=== PATIENT | male | born 1990 | race Caucasian/White ===

== ENCOUNTER 2022-04-14 11:35 | Outpatient (CLI) | payer OTHER, SELFPAY ==
[2022-04-14 12:15] LABS: Mono Screen* Negative (Negative)
[2022-04-14 21:36] LABS: Chloride* 107 mmol/L (96-114)
[2022-04-14 21:37] LABS: Albumin* 4.1 g/dL (3.3-5.0); Sodium* 141 mmol/L (135-149)
[2022-04-14 21:38] LABS: Potassium* 4.4 mmol/L (3.6-5.1)
[2022-04-14 21:40] LABS: Alanine Aminotransferase* 105 U/L (4-50); Alkaline Phosphatase* 79 U/L (40-150); Aspartate Amino Transferase* 97 U/L (12-35); Bilirubin Total* 0.6 mg/dL (0.1-1.5); Blood Urea Nitrogen* 15 mg/dL (5-24); Carbon Dioxide* 26 mmol/L (20-32); Estimated Glomerular Filt Rate 103 ml/min; Glucose* 82 mg/dL (60-115)
[2022-04-14 21:41] LABS: Calcium* 9.2 mg/dL (8.4-10.6)
[2022-04-14 21:43] LABS: C Reactive Protein* 1.4 mg/dL (0.5-1.0)
== END 2022-04-14 11:36 | disposition home or self-care (01) ==
PROVIDERS: PCP Emergency Medicine; Visit Provider Emergency Medicine
DX: R61 Generalized hyperhidrosis (principal)
CPT/HCPCS: 80053; 86140; 86308; 86617; 86618; 87040

== ENCOUNTER 2022-04-16 16:07 | Outpatient (CLI) | payer OTHER, SELFPAY | END 2022-04-16 16:08 | disposition home or self-care (01) | LOC: LKVREF 04-19 13:03 | PROVIDERS: PCP Emergency Medicine; Visit Provider Emergency Medicine | DX: R74.01 Elevation of levels of liver transaminase levels (principal) | CPT/HCPCS: 80074 ==

== ENCOUNTER 2022-04-22 10:13 | Outpatient (CLI) | payer OTHER, SELFPAY ==
[2022-04-22 15:21] LABS: Chloride* 108 mmol/L (96-114)
[2022-04-22 15:22] LABS: Potassium* 4.5 mmol/L (3.6-5.1); Sodium* 143 mmol/L (135-149)
[2022-04-22 15:25] LABS: Alanine Aminotransferase* 71 U/L (4-50); Alkaline Phosphatase* 74 U/L (40-150); Aspartate Amino Transferase* 64 U/L (12-35); Bilirubin Direct* 0.3 mg/dL (0.0-0.5); Bilirubin Total* 0.7 mg/dL (0.1-1.5); Blood Urea Nitrogen* 14 mg/dL (5-24); Carbon Dioxide* 27 mmol/L (20-32); Total Protein* 6.7 g/dL (6.0-8.3)
[2022-04-22 15:26] LABS: Glucose* 85 mg/dL (60-115)
[2022-04-22 15:28] LABS: C Reactive Protein* 0.8 mg/dL (0.5-1.0)
[2022-04-22 15:41] LABS: Creatinine* 0.9 mg/dL (0.5-1.5); Estimated Glomerular Filt Rate 116 ml/min
[2022-04-24 20:25] LABS: Keppra (Levetiracetam) <2 ug/mL (10-40)
== END 2022-04-22 10:14 | disposition home or self-care (01) ==
PROVIDERS: PCP Emergency Medicine; Visit Provider Emergency Medicine
DX: G40.909 Epilepsy, unspecified, not intractable, without status epilepticus (principal); R61 Generalized hyperhidrosis; R74.01 Elevation of levels of liver transaminase levels; D64.9 Anemia, unspecified
CPT/HCPCS: 80048; 80076; 80164; 80165; 80177; 86140